=== PATIENT | male | born 1945 | race Caucasian/White ===

== ENCOUNTER 2017-12-18 22:31 | Emergency (ER) | payer MEDICARE ==
[2017-12-18] MEDS ORDERED: LOPRESSOR 225 MG/TAB PO (22:47)
[2017-12-18] MEDS ORDERED: ALLOPURINOL300 M1 PO (22:48)
[2017-12-18] MEDS ORDERED: PLAQUENIL 200M200 MG PO (22:49)
[2017-12-18] MEDS ORDERED: ASPIR LOW81 MG PO (22:55)
[2017-12-18] MEDS ORDERED: BENLYSTA400 MG (22:56)
[2017-12-18 23:28] LABS: EOS # 0.2 (0.04-0.40); EOS % 3.3 % (0.0-4.0); HEMOGLOBIN 12.6 g/dL (13.5-18.0); MEAN CELL VOLUME 94 fl (78-100); MEAN CORPUSCULAR HEMOGLOBIN 31 pg (27-31); MEAN CORPUSCULAR HGB CONC 33 g/dL (33-37); MONO # 0.7 (0.20-0.80); NEU # 4.6 (1.40-6.50); PLATELET COUNT 187 K/mm3 (130-400); RED BLOOD COUNT 4.06 M/mm3 (4.20-5.60); RED CELL DISTRIBUTION WIDTH 13.8 % (11.5-14.5); WHITE BLOOD COUNT 6.7 K/mm3 (4.8-10.8)
[2017-12-18 23:39] LABS: BUN/CREATININE RATIO 19.2 (6.0-26.0); CALCIUM 9.5 mg/dL (8.4-10.2); POTASSIUM 3.7 mmol/L (3.6-5.0)
[2017-12-18 23:43] LABS: PROTHROMBIN TIME 9.3 SECONDS (9.0-12.0)
[2017-12-19 00:30] VITALS: BP 121/70
== END 2017-12-19 00:30 | disposition home or self-care (01) ==
LOC: ED 22:31
PROVIDERS: Family Medicine
DX: K14.8 Other diseases of tongue (principal); I10 Essential (primary) hypertension; L93.0 Discoid lupus erythematosus